=== PATIENT | female | born 1950 | race African-American/Black ===

== ENCOUNTER 2017-06-09 11:44 | Emergency (ER) | payer OTHER ==
[~2017-06-09] VITALS: Ht 167.6 cm; Wt 78.0 kg
[~2017-06-09 11:44] MED LIST: ATOR20TA65 PO; BALANCED SALT IRRIG SOLN 15ML ONE; BRIM15DR8 RIGHTEYE; BUPIVACAINE HCL/PF 0.75% (7.5MG/ML) 10ML ONE; CHOL100053 PO; CIPROFLOXACIN 0.3% OPHTH SOLN 2.5ML ONE; LATA2.5D2 RIGHTEYE; LIDOCAINE HCL 2%/EPINEPHRINE 1:100,000 20 ML VIAL INFIL ONE; METH50TA5 PO; METO25TA6 PO; NEO/POLYMYX B SULF/DEXAMETH OPHTH OINT 3.5GM ONE; [UNRECOGNIZED DRUG - CODE] RIGHTEYE
[2017-06-09] MEDS ORDERED: ACETAZOLAMIDE SODIUM 500MG/VIAL IV ONE (12:30)
[2017-06-09 12:46] LABS: BASOPHILS % 0.2 % (0.0-2.0); HEMATOCRIT. 39.7 % (36.0-48.0); HEMOGLOBIN. 13.3 g/dL (12.0-16.0); LYMPHOCYTES % 30.8 % (20.0-50.0); MEAN CORPUSCULAR HEMOGLOBIN 31.9 pg (28.0-32.0); MEAN CORPUSCULAR VOLUME 95.6 fL (81.0-99.0); MEAN PLATELET VOLUME 7.7 fl (7.4-10.4); MONOCYTES % 8.2 % (2.0-8.0); NEUTROPHILS % 58.8 % (40.0-76.0); PLATELET 195 x1000/uL (130-400); RED BLOOD CELL COUNT 4.15 mill/uL (4.2-5.4); RED CELL DISTRIBUTION WIDTH 14.7 % (11.6-14.6)
[2017-06-09 12:55] LABS: PARTIAL THROMBOPLASTIN TIME 25.4 sec (23.4-31.0); PROTHROMBIN TIME 10.6 sec (9.4-11.6)
[2017-06-09 12:58] LABS: CARBON DIOXIDE 28 mEq/L (21-32); CHLORIDE 108 mEq/L (98-107)
[2017-06-09 14:02] VITALS: BP 126/82
[2017-06-09] MEDS ORDERED: TRIAMCINOLONE ACETONIDE 40MG/ML 1ML VIAL ONE (14:31)
[2017-06-09] MEDS ORDERED: FENTANYL CITRATE/PF 50MCG/ML 2ML VIAL ONE ×2 (14:36→15:11)
[2017-06-09] MEDS ORDERED: MIDAZOLAM HCL 2 MG/2 ML VIAL ONE ×2 (14:36→15:11)
[2017-06-09] MEDS ORDERED: MEPERIDINE HCL/PF 25MG/ML CPJ IV PRN (14:45)
[2017-06-09] MEDS ORDERED: HYDROMORPHONE HCL/PF 2MG/ML CPJ IV PRN (14:45)
[2017-06-09] MEDS ORDERED: LABETALOL HCL 20MG/4ML CARPUJECT IV PRN (14:45)
[2017-06-09] MEDS ORDERED: ONDANSETRON HCL 4MG/2ML VIAL IV PRN (14:45)
[2017-06-09] MEDS ORDERED: PROPOFOL 200MG/20ML VIAL IV ONE ×2 (14:57→15:05)
[2017-06-09] MEDS ORDERED: LIDOCAINE HCL 1% 20ML VIAL (Pyxis) INJ ONE ×2 (14:57→15:05)
[2017-06-09] MEDS ORDERED: CEFAZOLIN SODIUM 1000MG/VIAL ONE (15:05)
[2017-06-09] MEDS ORDERED: ONDANSETRON HCL 4MG/2ML VIAL ONE (15:05)
[2017-06-09] MEDS ORDERED: DEXAMETHASONE 4MG/ML 1ML VIAL ONE (15:05)
[2017-06-09] MEDS ORDERED: SODIUM CHLORIDE 0.9% 10ML VIAL ONE (15:05)
== END 2017-06-09 14:03 | disposition home or self-care (01) ==
LOC: ER 12:45 → EDBEDREQ 12:51 → EDBEDREQTM 12:51 → ER 14:03 → CANBEDREQ 18:57 → ENRESERV 06-11 12:46 → CANRESERV 06-11 12:46 → CANBEDREQ 06-11 15:05
DX: H40.89 Other specified glaucoma (principal); I10 Essential (primary) hypertension; E78.00 Pure hypercholesterolemia, unspecified; K21.9 Gastro-esophageal reflux disease without esophagitis; Z88.0 Allergy status to penicillin; Z94.7 Corneal transplant status
CPT/HCPCS: 36415; 66183; 71010; 80048; 85025; 85610; 85730; 93005; 96374; 99285; A4216; C1783; J0690; J1100; J1120; J2250; J2405; J3010; J3301; J3490; J7030; J2704